=== PATIENT | male | born 1960 | race Caucasian/White ===

== ENCOUNTER 2022-08-28 18:17 | Emergency (ER) | payer OTHER ==
[~2022-08-28] VITALS: Ht 180.3 cm; Wt 108.9 kg
[2022-08-28] MEDS ORDERED: TERAZOSIN (18:59)
[2022-08-28] MEDS ORDERED: ALBU8HFA4 (18:59)
[2022-08-28] MEDS ORDERED: BUPROPION (18:59)
[2022-08-28] MEDS ORDERED: LOSARTAN (18:59)
[2022-08-28] MEDS ORDERED: ATORVASTATIN (18:59)
[2022-08-28] MEDS ORDERED: MONTELUKAST (18:59)
[2022-08-28] MEDS ORDERED: WIXELA (19:05)
[2022-08-28] MEDS ORDERED: ONDANSETRON ODT 4 MG TAB.RAPDIS SL ONE (19:30)
[2022-08-28] MEDS ORDERED: HYDROMORPHONE 1 MG/1 ML DISP.SYRIN IM ONE (19:30)
--- NOTE | 2022-08-28 19:49 | NUR ---
Patient taken to CT via david
--- NOTE | 2022-08-28 20:05 | NUR ---
Patient back from CT.
[2022-08-28] MEDS ORDERED: HYDROMORPHONE 2 MG/1 ML DISP.SYRIN ONE (20:06)
[2022-08-28] MEDS ORDERED: ONDANSETRON ODT 4 MG TAB.RAPDIS ONE (20:06)
[2022-08-28] MEDS ORDERED: CYCLOBENZAPRINE HCL 10 MG TABLET ONE (21:07)
[2022-08-28] MEDS ORDERED: CYCLOBENZAPRINE HCL 10 MG TABLET PO ONE (21:15)
[2022-08-28] MEDS ORDERED: ONDA4TAB5 PO (21:34)
[2022-08-28] MEDS ORDERED: HYDR-3980 PO (21:34)
[2022-08-28] MEDS ORDERED: CYCL10TA9 PO (21:34)
--- NOTE | 2022-08-29 02:00 | NUR ---
Patient stated that he wanted to AMA. Dr. Donaldson made aware.
--- NOTE | 2022-08-29 02:30 | NUR ---
Shilpi from [place] called to given update. Patient will be transfered to [facility] ER monitoring. # for report: [phone]
--- NOTE | 2022-08-29 02:48 | NUR ---
Report given to TREVOR Kirkpatrick from [facility].
--- NOTE | 2022-08-29 03:00 | NUR ---
[facility] arrived for patient transportation.
--- NOTE | 2022-08-29 03:20 | NUR ---
Patient left with [facility] transportation and is going to [facility].
== END 2022-08-29 03:20 | disposition short-term general hospital (02) ==
LOC: ER 18:39
DX: S86.012A Strain of left Achilles tendon, initial encounter (principal); W19.XXXA Unspecified fall, initial encounter; Y92.89 Other specified places as the place of occurrence of the external cause; Y99.0 Civilian activity done for income or pay; I25.10 Atherosclerotic heart disease of native coronary artery without angina pectoris; Z98.61 Coronary angioplasty status; J45.909 Unspecified asthma, uncomplicated; E78.5 Hyperlipidemia, unspecified; F32.A Depression, unspecified; Z79.899 Other long term (current) drug therapy; T14.8XXA Other injury of unspecified body region, initial encounter
CPT/HCPCS: 99285; 70450; 29515; 87426; 73060; 73610; 73630; 72125; 96372; J1170; A4663; Q0162